=== PATIENT | male | born 1965 | race Asian ===

== ENCOUNTER → 2018-09-09 | Outpatient (CLI) | payer OTHER ==
[~2018-09-09] MED LIST: IOHEXOL 100 ML; LORAZEPAM (2 MG/ML PO SYG) PO; LORAZEPAM 1 MG TAB PO; METOPROLOL 5 MG INJ; NITROGLYCERIN AEROSOL (4.9 GM); NITROGLYCERIN AEROSOL (4.9 GM) SL; SOD CHLORIDE 0.9% 100 ML
[2018-09-09] MEDS: METOPROLOL 100 MG TAB ×2 (12:35→14:45)
[2018-09-09] MEDS: METOPROLOL (XL) 100 MG TAB PO (12:40)
[2018-09-09] MEDS: METOPROLOL 5 MG INJ (14:10)
[2018-09-09] MEDS: DILTIAZEM 25 MG INJ IV (15:30)
== END | disposition home or self-care (01) ==
LOC: C/S 12:07
DX: I25.10 Atherosclerotic heart disease of native coronary artery without angina pectoris (principal); I10 Essential (primary) hypertension; I73.9 Peripheral vascular disease, unspecified
CPT/HCPCS: 75571; 75571-59; 75574